=== PATIENT | female | born 1985 | race Caucasian/White ===

== ENCOUNTER 2021-07-27 20:54 | Observation (INO) ==
[2021-07-27 21:48] LABS: Basophils % 0.6 %; Eosinophils % 0.6 %; Hematocrit 43.6 % (35.3-44.9); Hemoglobin 14.8 g/dL (11.5-15.4); Lymphocytes # 1.2 K/mcL (0.6-4.6); Mean Corpuscular HGB Conc 33.9 g/dL (31.6-35.5); Mean Corpuscular Hemoglobin 29.2 pg (28.0-33.3); Mean Corpuscular Volume 86.2 fL (83.0-100.0); Mean Platelet Volume 9.2 fL (9.4-12.4); Monocytes # 0.5 K/mcL (0.0-1.3); Monocytes % 15.2 %; Neutrophils # 1.5 K/mcL (1.6-8.9); Platelet Count 160 K/mcL (140-400); Red Blood Count 5.06 M/mcL (3.82-4.97); Segmented Neutrophils % 47.6 %; White Blood Count 3.2 K/mcL (4.3-11.1)
[2021-07-27 21:55] LABS: Estimated Average Glucose 111 mg/dl; Hemoglobin A1C 5.5 %
[2021-07-27 21:55] LABS: Bacteria,Urine Few per hpf (None-Few); Bilirubin,Urine Negative (Negative); Blood,Urine Small (Negative); Clarity,Urine Clear (Clear); Color,Urine Yellow (Yellow); Glucose,Urine (UA) Normal (Normal); Ketones,Urine Trace mg/dL (Negative); Leukocyte Esterase,Urine Negative (Negative); Mucus,Urine Many per lpf (None-Few); Nitrite,Urine Negative (Negative); Protein,Urine 50 mg/dL (Neg-Trace); RBC,Urine 15-30 per hpf (0-3); Squamous Epithelial Cell,Urine Moderate per hpf (None-Few); Urobilinogen,Urine Normal (Normal); WBC,Urine 0-3 per hpf (0-3)
[2021-07-27 22:11] LABS: Acetaminophen < 10 mcg/mL (10-20); BUN/Creatinine Ratio 14 (6-26); Blood Urea Nitrogen 10 mg/dL (6-20); Calcium 8.8 mg/dL (8.6-10.3); Carbon Dioxide 26 mEq/L (23-29); Chloride 104 mEq/L (98-107); Cholesterol 159 mg/dL (< 200); Ethanol < 10 mg/dL (Less than 10); Glucose 109 mg/dL (70-105); HDL Cholesterol 53 mg/dL (40-59); LDL Cholesterol,Calculated 97 mg/dL (< 100); Osmolality,Calculated 290 (280-300); Potassium 3.2 mEq/L (3.5-5.1); Salicylate < 2.5 mg/dL (15.0-30.0); Sodium 140 mEq/L (136-145); Triglycerides 43 mg/dL (< 150); eGFR For African Americans > 60 (> 60); eGFR For Non-African Americans > 60 (> 60)
[2021-07-27 22:11] LABS: Amphetamine Screen,Urine Negative ng/mL (Cutoff=1000); Barbiturate Screen,Urine Negative ng/mL (Cutoff=200); Benzodiazepines Screen,Urine Negative ng/mL (Cutoff=200); Cannabinoid Screen,Urine Positive ng/mL (Cutoff = 50); Cocaine Screen,Urine Negative ng/mL (Cutoff= 300); Opiate Screen,Urine Negative ng/mL (Cutoff=300); Phencyclidine Screen,Urine Negative ng/mL (Cutoff=25)
[2021-07-27] MEDS ORDERED: Haloperidol Lactate 5 MG/ML VIAL IM ONE (23:37)
[2021-07-28 00:07] LABS: Influenza A PCR Negative (Negative); Influenza B PCR Negative (Negative); Resp. Syncytial Virus PCR Negative (Negative)
[2021-07-28 00:15] LABS: SARS-CoV-2 by PCR (In House) Positive (Negative)
[2021-07-28] MEDS ORDERED: Ondansetron 4 MG/2 ML VIAL IVP PRN (02:02)
[2021-07-28] MEDS ORDERED: Naloxone 0.4 MG/ML INJ IVP PRN (02:02)
[2021-07-28 06:50] LABS: Basophils % 0.4 %; Eosinophils % 1.1 %; Hematocrit 39.7 % (35.3-44.9); Hemoglobin 13.9 g/dL (11.5-15.4); Lymphocytes # 1.3 K/mcL (0.6-4.6); Lymphocytes % 45.8 %; Mean Corpuscular Volume 85.7 fL (83.0-100.0); Mean Platelet Volume 9.5 fL (9.4-12.4); Monocytes # 0.4 K/mcL (0.0-1.3); Monocytes % 15.1 %; Neutrophils # 1.1 K/mcL (1.6-8.9); Platelet Count 152 K/mcL (140-400); Red Blood Count 4.63 M/mcL (3.82-4.97); Segmented Neutrophils % 37.6 %; White Blood Count 2.8 K/mcL (4.3-11.1)
[2021-07-28 07:21] LABS: Platelet Estimate Normal (Normal); Reactive Lymphocytes Present (Not Present)
[2021-07-28 07:23] LABS: BUN/Creatinine Ratio 14 (6-26); Blood Urea Nitrogen 10 mg/dL (6-20); Calcium 8.8 mg/dL (8.6-10.3); Carbon Dioxide 30 mEq/L (23-29); Chloride 105 mEq/L (98-107); Glucose 94 mg/dL (70-105); Magnesium 2.2 mg/dL (1.6-2.6); Osmolality,Calculated 289 (280-300); Potassium 4.3 mEq/L (3.5-5.1); Sodium 140 mEq/L (136-145); eGFR For African Americans > 60 (> 60); eGFR For Non-African Americans > 60 (> 60)
[2021-07-28 07:32] LABS: Thyroid Stimulating Hormone 5.045 mcIU/mL (0.340-5.600)
[2021-07-28] MEDS ORDERED: Ipratropium 1 PUFF INHALER IH PRN (13:55)
[2021-07-28] MEDS ORDERED: Benzonatate 100 MG CAPSULE PO PRN (13:55)
[2021-07-29 04:40] VITALS: O2SAT 96
[2021-07-29 08:51] VITALS: BP 116/81; PULSE 73; TEMP 97.7
[2021-07-29] MEDS ORDERED: Cholecalciferol (D-3) 1,000 UNIT (25MCG) TABLET PO SCH (09:00)
[2021-07-29] MEDS ORDERED: Multivit/Ca/Min/Fe/FA 1 TAB TABLET PO SCH (09:00)
== END 2021-07-29 13:18 | disposition home or self-care (01) ==
LOC: 3BNU 20:54 → EMEROOARM 20:54 → SUATTDRO 07-28 01:31 → 3BNU 07-28 01:53
PROVIDERS: ADMIT Internal Medicine; ATTEND Internal Medicine

== ENCOUNTER 2021-10-12 01:55 | Inpatient (IN) ==
[2021-10-12 02:19] LABS: Basophils # 0.1 K/mcL (0.0-0.2); Basophils % 0.8 %; Eosinophils % 0.7 %; Hemoglobin 13.7 g/dL (11.5-15.4); Immature Granulocytes % 0.2 % (0-4); Lymphocytes # 1.3 K/mcL (0.6-4.6); Lymphocytes % 21.2 %; Mean Corpuscular HGB Conc 33.4 g/dL (31.6-35.5); Mean Corpuscular Hemoglobin 29.3 pg (28.0-33.3); Mean Corpuscular Volume 87.8 fL (83.0-100.0); Monocytes # 0.6 K/mcL (0.0-1.3); Monocytes % 9.6 %; Platelet Count 292 K/mcL (140-400); Red Blood Count 4.67 M/mcL (3.82-4.97); Red Cell Distribution Width 12.4 % (11.5-14.5); Segmented Neutrophils % 67.5 %; White Blood Count 5.9 K/mcL (4.3-11.1)
[2021-10-12 02:26] LABS: Bacteria,Urine Few per hpf (None-Few); Bilirubin,Urine Negative (Negative); Blood,Urine Small (Negative); Clarity,Urine Clear (Clear); Color,Urine Yellow (Yellow); Glucose,Urine (UA) Normal (Normal); Ketones,Urine Trace mg/dL (Negative); Leukocyte Esterase,Urine Negative (Negative); Mucus,Urine Moderate per lpf (None-Few); Nitrite,Urine Negative (Negative); Protein,Urine 30 mg/dL (Neg-Trace); RBC,Urine 0-3 per hpf (0-3); Specific Gravity,Urine > 1.030 (1.010-1.025); Squamous Epithelial Cell,Urine Few per hpf (None-Few); Urobilinogen,Urine Normal (Normal); WBC,Urine 0-3 per hpf (0-3)
[2021-10-12 02:41] LABS: Amphetamine Screen,Urine Negative ng/mL (Cutoff=1000); Barbiturate Screen,Urine Negative ng/mL (Cutoff=200); Benzodiazepines Screen,Urine Negative ng/mL (Cutoff=200); Cannabinoid Screen,Urine Positive ng/mL (Cutoff = 50); Cocaine Screen,Urine Negative ng/mL (Cutoff= 300); Opiate Screen,Urine Negative ng/mL (Cutoff=300); Phencyclidine Screen,Urine Negative ng/mL (Cutoff=25)
[2021-10-12 02:43] LABS: Acetaminophen < 10 mcg/mL (10-20); BUN/Creatinine Ratio 15 (6-26); Blood Urea Nitrogen 12 mg/dL (6-20); Calcium 9.1 mg/dL (8.6-10.3); Carbon Dioxide 26 mEq/L (23-29); Chloride 105 mEq/L (98-107); Ethanol < 10 mg/dL (Less than 10); Glucose 129 mg/dL (70-105); Osmolality,Calculated 289 (280-300); Salicylate < 2.5 mg/dL (15.0-30.0); Sodium 139 mEq/L (136-145); eGFR For African Americans > 60 (> 60); eGFR For Non-African Americans > 60 (> 60)
[2021-10-12] MEDS ORDERED: *HR* LORazepam 2 MG/ML VIAL IM ONE ×2 (03:06→08:13)
[2021-10-12] MEDS ORDERED: Haloperidol Lactate 5 MG/ML VIAL IM ONE ×2 (03:06→08:13)
[2021-10-13] MEDS ORDERED: Potassium Chloride Elixir 20 MEQ/15 ML UDC PO ONE (03:24)
[2021-10-13 03:43] LABS: Influenza A PCR Negative (Negative); Influenza B PCR Negative (Negative); Resp. Syncytial Virus PCR Negative (Negative)
[2021-10-13 03:45] LABS: SARS-CoV-2 by PCR (In House) Negative (Negative)
[2021-10-13] MEDS ORDERED: Acetaminophen 325 MG TABLET PO PRN (03:47)
[2021-10-13] MEDS ORDERED: *HR* LORazepam 2 MG/ML VIAL IM PRN (03:47)
[2021-10-13] MEDS ORDERED: haloperidoL 5 MG TABLET PO PRN (03:47)
[2021-10-13] MEDS ORDERED: Ibuprofen 400 MG TABLET PO PRN (03:47)
[2021-10-13] MEDS ORDERED: Haloperidol Lactate 5 MG/ML VIAL IM PRN (03:47)
[2021-10-13] MEDS ORDERED: MOM Conc 10 ML UD.LIQ PO PRN (10:34)
[2021-10-13] MEDS ORDERED: Mag Hydrox/Al Hydrox/Simeth 30 ML UDC PO PRN (10:34)
[2021-10-14] MEDS: *HR* LORazepam 1 MG TABLET PO PRN (18:05)
[2021-10-14] MEDS: traZODone 50 MG TABLET PO PRN (20:21)
[2021-10-14] MEDS: OLANZapine 5 MG TAB.RAPDIS PO SCH (20:21)
[2021-10-14] MEDS: hydrOXYzine pamoate 25 MG CAPSULE PO PRN (20:21)
[2021-10-15] MEDS: *HR* LORazepam 1 MG TABLET PO PRN (14:37)
[2021-10-15] MEDS: hydrOXYzine pamoate 25 MG CAPSULE PO PRN ×2 (14:38→20:01)
[2021-10-15] MEDS: OLANZapine 5 MG TAB.RAPDIS PO SCH (20:01)
[2021-10-15] MEDS: traZODone 50 MG TABLET PO PRN (20:01)
[2021-10-16 08:55] VITALS: BP 123/86; PULSE 94; TEMP 98.4; O2SAT 100
== END 2021-10-16 15:10 | disposition home or self-care (01) | DRG 885 ==
LOC: EMEROOARM 01:55 → 1ANU 10-13 03:58
PROVIDERS: ADMIT Psychiatry & Neurology Psychiatry; ATTEND Psychiatry & Neurology Psychiatry